=== PATIENT | female | born 1940 | race Caucasian/White ===

== ENCOUNTER 2019-01-29 16:50 | Observation (INO) | payer OTHER ==
[~2019-01-29] VITALS: Ht 154.9 cm; Wt 84.4 kg
[~2019-01-29 16:50] MED LIST: ASPIR 8181 MG PO; BIOTIN-D1 GM MC; CINNAMON500 MG PO; CLARITIN10 M2 PO; CO Q-1010 MG PO; CYCLOBENZAPRINE5 MG PO; DOXYCYCLINE 10100 M1 PO; FISH OIL 1,0001 EAC5 PO; FLAXSEED OIL1000 MG PO; GARLIC OIL1000 MG PO; HYDROCODON-ACE1 EAC7 PO; KLOR-CON 1010 MEQ PO; LEVOTHYROXIN0.125 M1 PO; LIPITOR 20 MG T20 M1 PO; LISINOPRIL2.5 MG PO; MAGNESIUM CITR100 MG PO; MAGNESIUM OXID200 MG PO; MEDROLDOSEPACK PO; MELATONIN3 MG PO; METFORMIN HCL500 MG PO; MOTION RELIEF25 MG PO; MULTIVITAMINS PO; NIACIN 100MG T100 M1 PO; NORCO 5-325 TA1 EACH PO; TESSALON PERLE100 MG PO; VITAMIN B-12500 MCG PO; VITAMIN D1000 UNI1 PO; VITAMIN E400 UNIT PO; VITAMINC500 PO; ZINC CHELATE50 MG PO; ZOFRAN ODT4 MG PO; ZPAK PO
[2019-01-29] MEDS ORDERED: NORVASC5 MG PO (17:00)
[2019-01-29] MEDS ORDERED: CLEOCIN HCL150 MG PO (17:10)
[2019-01-29] MEDS ORDERED: FISH OIL CONCE1 EAC1 PO (17:11)
[2019-01-29 17:25] LABS: ABSOLUTE EOSINOPHILS 0.3 thou/uL (0.0-0.7); ABSOLUTE MONOCYTES 0.9 thou/uL (0.0-1.2); ABSOLUTE NEUTROPHILS 6.4 thou/uL (1.6-8.1); BASOPHILS 0.3 %; EOSINOPHILS 2.4 %; LYMPHOCYTES 28.7 %; MCH 30.7 pg (26.0-34.0); MCHC 34.3 g/dL (28.0-37.0); MCV 89.5 fL (80.0-100.0); MONOCYTES 8.5 %; NUCLEATED RBCS 0 /100WBC; PLATELET COUNT* 341 thou/uL (150-400); POLYS 60.1 %; RBC 4.25 mil/uL (4.20-5.00); RDW-CV 14.1 % (10.5-14.5); WBC 10.6 thou/uL (4.0-11.0)
[2019-01-29 17:36] LABS: APTT 26.7 Seconds (25.0-31.3); PROTIME 10.1 Seconds (9.20-11.50)
[2019-01-29] MEDS ORDERED: PROBIOTIC1 EAC1 PO (17:38)
[2019-01-29] MEDS ORDERED: LITTLE REMEDIE118 M1 PO (17:38)
[2019-01-29 17:39] LABS: ANION GAP 8 mmol/L (7-16); BUN 15 mg/dL (7-18); CALCIUM 9.3 mg/dL (8.5-10.1); CHLORIDE 98 mmol/L (98-107); CO2 27 mmol/L (21-32); GLUCOSE 150 mg/dL (70-99); POTASSIUM 4.1 mmol/L (3.5-5.1); SODIUM 133 mmol/L (136-145)
[2019-01-29] MEDS ORDERED: VENTOLIN HFA 1818 GM INH (17:40)
[2019-01-29] MEDS ORDERED: NASACORT10.8 ML NASAL (17:41)
[2019-01-29] MEDS ORDERED: FOSAMAX 70 MG T70 MG PO (17:41)
[2019-01-29] MEDS ORDERED: FLONASE 0.05%50 MCG NASAL (17:41)
[2019-01-29 17:50] LABS: ALBUMIN 3.9 g/dL (3.4-5.0); ALKALINE PHOSPHATASE 77 U/L (46-116); NT-PRO BRAIN NAT PEPTIDE 140 pg/mL (<300); SGOT 19 U/L (15-37); SGPT 28 U/L (30-65); TOTAL BILIRUBIN 0.2 mg/dL (<0.1-1.0); TOTAL PROTEIN 7.7 g/dL (6.4-8.2); TROPONIN-I LEVEL <0.06 ng/mL (<0.06)
[2019-01-29 19:08] LABS: URINE BILIRUBIN NEGATIVE (Negative); URINE BLOOD NEGATIVE (Negative); URINE CLARITY CLEAR; URINE COLOR YELLOW; URINE GLUCOSE-RANDOM NEGATIVE (Negative); URINE KETONES NEGATIVE (Negative); URINE LEUKOCYTES-REFLEX NEGATIVE (Negative); URINE NITRITE-REFLEX NEGATIVE (Negative); URINE PROTEIN NEGATIVE (Negative); URINE SPECIFIC GRAVITY <= 1.005 (1.005-1.030); URINE UROBILINOGEN 0.2 E.U./dl (0.2-1.0)
--- NOTE | 2019-01-29 19:08 | NUR ---
RECEIVED REPORT FROM BLAYNE ANDERSON, MONITOR TRACING SR, PT ALERT AND ORIENT X4; STEADY AMBULATING TO BATHROOM WILL CONTINUE TO MONITOR
[2019-01-29 20:00] VITALS: BP 146/65
[2019-01-29 21:00] VITALS: BP 149/62
--- NOTE | 2019-01-30 05:04 | NUR ---
PATIENT ARRIVED ON UNIT AT APPROX 2030. ALERT AND ORIENTED TIMES 4. UP AD JOSIAH. CELLULITIS NOTED TO RIGHT LEG. NO COMPLAINTS OF PAIN OR DISCOMFORT NOTED. HOURLY ROUNDING AND ADMISSION ASSESSMENT COMPLETED DOCUMENTED.
[2019-01-30 05:39] LABS: ABSOLUTE EOSINOPHILS 0.3 thou/uL (0.0-0.7); ABSOLUTE LYMPHOCYTES 2.5 thou/uL (0.8-5.3); ABSOLUTE MONOCYTES 0.8 thou/uL (0.0-1.2); ABSOLUTE NEUTROPHILS 4.2 thou/uL (1.6-8.1); BASOPHILS 0.4 %; HEMOGLOBIN 12.3 gm/dL (12.0-15.0); MCH 30.4 pg (26.0-34.0); MCHC 34.1 g/dL (28.0-37.0); MCV 89.2 fL (80.0-100.0); MONOCYTES 9.8 %; MPV 7.6 fl. (7.2-11.1); NUCLEATED RBCS 0 /100WBC; PLATELET COUNT* 289 thou/uL (150-400); POLYS 53.8 %; RBC 4.04 mil/uL (4.20-5.00); WBC 7.8 thou/uL (4.0-11.0)
[2019-01-30 05:59] LABS: CALCIUM 8.7 mg/dL (8.5-10.1); CREATININE 0.8 mg/dL (0.6-1.3); POTASSIUM 4.1 mmol/L (3.5-5.1)
[2019-01-30 08:00] VITALS: BP 142/59
--- NOTE | 2019-01-30 12:04 | 2DMMODE ---
[place] [address] 2 D/M-MODE ECHOCARDIOGRAM Name: VASILIY BOLANOS Room: [address] Kenyatta Valdez#: [id number] Admission: 01/29/19 Attend Phys: Fidel Barber, Discharge: Date of : 40 Date of Service: 01/30/19 1204 Report #: [id number] THIS REPORT FOR: //name// APPROVED REPORT Study performed: 01/30/2019 10:00:22 EXAM: Comprehensive 2D, Doppler, and color-flow Echocardiogram Patient Location: In-Patient Room #: [facility] Status: routine BSA: 1.83 HR: 67 bpm BP: 149/62 mmHg Rhythm: NSR Other Information Study Quality: Good Indications Congestive Heart Failure edema 2D Dimensions IVSd: 11.37 (7-11mm) LVOT Diam: 18.89 (18-24mm) LVDd: 39.80 mm PWd: 8.71 (7-11mm) Ascending Ao: 30.17 (22-36mm) LVDs: 22.03 (25-40mm) Aortic Root: 28.84 mm Volumes Left Atrial Volume (Systole) LA ESV Index: 19.20 mL/m2 Aortic Valve AoV Peak Felix.: 1.36 m/s AO Peak Gr.: 7.36 mmHg LVOT Max P.97 mmHg AO Mean Gr.: 4.10 mmHg LVOT Mean P.29 mmHg LVOT Max V: 1.11 m/s AO V2 VTI: 29.09 cm LVOT Mean V: 0.68 m/s SHANTELLE (VTI): 2.42 cm2 LVOT V1 VTI: 25.07 cm AI Alpine: 2.28 m/s2 AI PHT: 443.76 [place] [address] 2 D/M-MODE ECHOCARDIOGRAM Name: VASILIY BOLANOS Room: [address] M.RRosmery#: [id number] Admission: 01/29/19 Attend Phys: Fidel Barber, Discharge: Date of : 40 Date of Service: 01/30/19 1204 Report #: [id number] E/A Ratio: 0.78 MV Decel. Time: 281.78 ms MV E Max Felix.: 0.81 m/s MV PHT: 81.72 ms MVA (PHT): 2.69 cm2 TDI E/Lateral E': 7.36 E/Medial E': 9.00 Medial E' Felix.: 0.09 m/s Lateral E' Felix.: 0.11 m/s Pulmonary Valve PV Peak Felix.: 1.01 m/s PV Peak Gr.: 4.08 mmHg Tricuspid Valve RAP Estimate: 5.00 mmHg TR Peak Gr.: 26.86 mmHg RVSP: 31.00 mmHg PA Pressure: 31.00 mmHg Left Ventricle The left ventricle is normal size. There is normal LV segmental wall motion. There is normal left ventricular wall thickness. Left ventricular systolic function is normal. The left ventricular ejection fraction is within the normal range. LVEF is 55-60%. Grade I - abnormal relaxation pattern. Right Ventricle The right ventricle is normal size. The right ventricular systolic function is normal. Atria The left atrium size is normal. The right atrium size is normal. Aortic Valve Mild aortic valve sclerosis. Mild to moderate aortic regurgitation. There is no aortic valvular stenosis. Mitral Valve The mitral valve is normal in structure. Trace mitral regurgitation. No evidence of mitral valve stenosis. Tricuspid Valve The tricuspid valve is normal in structure. Trace tricuspid regurgitation. [place] [address] 2 D/M-MODE ECHOCARDIOGRAM Name: VASILIY BOLANOS Room: [address]#: [id number] Admission: 01/29/19 Attend Phys: Fidel Barber, Discharge: Date of : 40 Date of Service: 01/30/19 1204 Report #: [id number] Pulmonic Valve Pulmonic valve is not well visualized. There is no pulmonic valvular regurgitation. Great Vessels The aortic root is normal in size. IVC is normal in size and collapses >50% with inspiration. Pericardium There is no pericardial effusion. <Conclusion> The left ventricle is normal size. There is normal left ventricular wall thickness. Left ventricular systolic function is normal. The left ventricular ejection fraction is within the normal range. LVEF is 55-60%. Grade I - abnormal relaxation pattern. The right ventricle is normal size. The left atrium size is normal. Mild aortic valve sclerosis. Mild to moderate aortic regurgitation. There is no aortic valvular stenosis. The mitral valve is normal in structure. The tricuspid valve is normal in structure. IVC is normal in size and collapses >50% with inspiration. There is no pericardial effusion. There is normal LV segmental wall motion. <ELECTRONICALLY SIGNED> By: Michael Santamaria MD, FACC 01/30/19 1204 1204 1204 Michael Santamaria MD, FACC /INF
[2019-01-30] MEDS ORDERED: ZESTRIL5 MG PO (12:12)
[2019-01-30] MEDS ORDERED: MINOCIN50 MG PO (12:12)
[2019-01-30 12:54] VITALS: BP 142/59
--- NOTE | 2019-01-30 13:35 | NUR ---
NO SIGNS OF DISTRESS OBSERVED. ALL SAFETY MEASURES MAINTAINED. PATIENT VOICED UNDERSTANDING OF DISCHARGE INSTRUCTIONS. IV REMOVED. PATIENT DECLINED TO WEAR [place]SE AT THIS TIME. PRESCRIPTIONS GIVEN TO PATIENT. PATIENT DENIED FURTHER NEEDS AT THIS TIME.
--- NOTE | 2019-01-30 18:13 | EKG ---
[place] [address] ELECTROCARDIOGRAM REPORT Name: VASILIY BOLANOS Room: [address] M.R.#: [id number] Admission: 01/29/19 Attend Phys: Fidel Barber MD Discharge: 01/30/19 Date of : 40 Report #: [id number] THIS REPORT FOR: //name// [facility] ED Test Date: 2019-01-29 Test Time: 16:56:22 Pat Name: VASILIY BOLANOS Department: Room: [facility] Gender: F [address] [facility] 1940 Requested By: Kamran Monte Order Number: [id number] MD: Claudio Jaramillo Measurements Intervals [place] Rate: 93 P: 84 WI: 153 QRS: 76 QRSD: 84 T: 61 QT: 332 QTc: 413 Interpretive Statements Sinus rhythm Compared to ECG 05/02/2009 14:49:06 ST (T wave) deviation no longer present Electronically Signed On 01-30-2019 18:13:35 CDT by Claudio Jaramillo [email or web address] <ELECTRONICALLY SIGNED> By: Claudio Jaramillo MD, [facility] 01/30/19 1813 1656 1656 Claudio Jaramillo MD, [facility] /EPI
== END 2019-01-30 13:42 | disposition home or self-care (01) ==
LOC: M.ERS 16:50 → M.ORTHSURG 18:13 → M.TBA-ER 18:13 → M.ORTHSURG 19:53
PROVIDERS: Family Medicine; ADMIT Internal Medicine
DX: L03.115 Cellulitis of right lower limb (principal); R60.9 Edema, unspecified; E11.9 Type 2 diabetes mellitus without complications; I10 Essential (primary) hypertension; J45.909 Unspecified asthma, uncomplicated; Z86.73 Personal history of transient ischemic attack (TIA), and cerebral infarction without residual deficits; Z79.82 Long term (current) use of aspirin; Z79.899 Other long term (current) drug therapy

== ENCOUNTER 2021-04-19 08:58 | Emergency (ER) | payer OTHER ==
[~2021-04-19] VITALS: Ht 162.6 cm; Wt 71.2 kg
[~2021-04-19 08:58] MED LIST changes: +CLEOCIN HCL150 MG PO; +FISH OIL CONCE1 EAC1 PO; +FLONASE 0.05%50 MCG NASAL; +FOSAMAX 70 MG T70 MG PO; +LITTLE REMEDIE118 M1 PO; +MINOCIN50 MG PO; +NASACORT10.8 ML NASAL; +NORVASC5 MG PO; +PROBIOTIC1 EAC1 PO; +VENTOLIN HFA 1818 GM INH; +ZESTRIL5 MG PO
--- NOTE | 2021-04-19 09:18 | EKG ---
[place] [address] ELECTROCARDIOGRAM REPORT Name: VASILIY BOLANOS Room: [facility].R.#: [id number] Admission: Attend Phys: Discharge: Date of : 40 Date of Service: 04/19/21911 Report #: [id number] THIS REPORT FOR: //name// [facility] ED Test Date: 2021-04-19 Test Time: 09:12:33 Pat Name: VASILIY BOLANOS Department: Room: Gender: F Tanbark Peeler: : 1940 Requested By: Damon Roth Order Number: [id number] MD: Christian Paris Measurements Intervals Spencer Rate: 101 P: 86 WV: 207 QRS: 71 QRSD: 82 T: 55 QT: 319 QTc: 414 Interpretive Statements Sinus tachycardia Borderline prolonged WV interval Consider right atrial enlargement Compared to ECG 01/29/2019 16:56:22 Sinus rhythm no longer present Electronically Signed On 04-19-2021 9:18:18 [employer] by Christian Paris [email or web address] <ELECTRONICALLY SIGNED> By: Christian Paris MD, [facility] 04/19/21917 1 1 Christian Paris MD, [facility] /EPI
[2021-04-19 09:30] LABS: ABSOLUTE BASOPHILS 0.1 thou/uL (0.0-0.2); ABSOLUTE EOSINOPHILS 0.1 thou/uL (0.0-0.7); ABSOLUTE LYMPHOCYTES 1.5 thou/uL (0.8-5.3); ABSOLUTE MONOCYTES 0.5 thou/uL (0.0-1.2); ABSOLUTE NEUTROPHILS 9.9 thou/uL (1.6-8.1); BASOPHILS 0.9 %; EOSINOPHILS 0.9 %; HEMATOCRIT 33.7 % (37.0-47.0); HEMOGLOBIN 11.3 gm/dL (12.0-15.0); LYMPHOCYTES 12.2 %; MCH 29.3 pg (26.0-34.0); MCHC 33.5 g/dL (28.0-37.0); MCV 87.3 fL (80.0-100.0); MONOCYTES 4.1 %; MPV 6.9 fl. (7.2-11.1); NUCLEATED RBCS 0 /100WBC; PLATELET COUNT* 378 thou/uL (150-400); POLYS 81.9 %; RBC 3.85 mil/uL (4.20-5.00); RDW-CV 13.3 % (10.5-14.5); WBC 12.1 thou/uL (4.0-11.0)
[2021-04-19 09:40] LABS: POTASSIUM 4.1 mmol/L (3.5-5.1)
[2021-04-19 09:45] LABS: ALBUMIN 3.4 g/dL (3.4-5.0); TOTAL BILIRUBIN 0.3 mg/dL (<0.1-1.0); TOTAL PROTEIN 7.8 g/dL (6.4-8.2)
[2021-04-19] MEDS ORDERED: DIFLUCAN150 M1 PO (09:46)
[2021-04-19] MEDS ORDERED: NORVASC5 MG PO (09:46)
[2021-04-19] MEDS ORDERED: HYOSCYAMINE0.125 MG PO (09:46)
[2021-04-19] MEDS ORDERED: MYRBETRIQ25 MG PO (09:47)
[2021-04-19] MEDS ORDERED: COZAAR 25 MG TA25 M2 PO (09:47)
[2021-04-19] MEDS ORDERED: MONTELUKAST SODI4 M1 PO (09:47)
[2021-04-19] MEDS ORDERED: TIZANIDINE HCL4 M1 PO (09:48)
[2021-04-19] MEDS ORDERED: CRESTOR5 MG PO (09:48)
[2021-04-19 10:34] LABS: URINE BILIRUBIN NEGATIVE (Negative); URINE BLOOD NEGATIVE (Negative); URINE CLARITY CLEAR; URINE COLOR YELLOW; URINE GLUCOSE-RANDOM NEGATIVE (Negative); URINE KETONES NEGATIVE (Negative); URINE LEUKOCYTES NEGATIVE (Negative); URINE NITRITE NEGATIVE (Negative); URINE PROTEIN NEGATIVE (Negative); URINE UROBILINOGEN 0.2 E.U./dl (0.2-1.0)
[2021-04-19] MEDS ORDERED: HYDROCODON-ACE1 EA11 PO (13:36)
[2021-04-19 13:50] VITALS: BP 154/72
== END 2021-04-19 13:51 | disposition home or self-care (01) ==
LOC: M.ERS 08:58
PROVIDERS: Emergency Medicine
DX: M54.6 Pain in thoracic spine (principal); Z20.822 Contact with and (suspected) exposure to COVID-19; R07.89 Other chest pain; E11.9 Type 2 diabetes mellitus without complications; J45.909 Unspecified asthma, uncomplicated; Z98.51 Tubal ligation status; Z90.49 Acquired absence of other specified parts of digestive tract; Z79.899 Other long term (current) drug therapy; Z79.82 Long term (current) use of aspirin; Z88.0 Allergy status to penicillin